=== PATIENT | female | born 1955 | race Caucasian/White ===

== ENCOUNTER → 2017-01-05 | Outpatient (CLI) | payer BC ==
[~2017-01-05] MED LIST: ALBUTEROL17 GM INH; AMLODIPINE BESYL5 MG PO; FLONASE 0.05% N16 G1; FLONASE 0.05% N16 G1 INH; LEVAQUIN250 MG PO; LISINOPRIL; LISINOPRIL-HCTZ1 T14 PO; MELOXICAM15 MG PO; PROMETHAZINE D118 ML PO; SINGULAIR PO; TAMIFLU75 M1 PO; TYLENOL325 MG/10. PO; ZOFRAN PO; [UNRECOGNIZED DRUG - OTHER] TOP
[2017-01-05 09:01] LABS: HEMATOCRIT 40.2 % (35.0-45.0); HEMOGLOBIN 13.5 gm/dL (12.0-16.0); MEAN CELL VOLUME 91.8 FL (83-96); MEAN CORPUSCULAR HEMOGLOBIN 30.9 PG (28-34); MEAN CORPUSCULAR HGB CONC 33.7 g/dL (30-36); RED BLOOD COUNT 4.38 X10e (3.90-5.30); RED CELL DISTRIBUTION WIDTH 13.6 % (11.0-15.5); WHITE BLOOD COUNT 8.5 X10e3 (4.0-10.5)
[2017-01-05 10:13] LABS: BILIRUBIN,TOTAL 0.8 mg/dL (0.2-2.0); BUN/CREATININE RATIO 22.85; CALCIUM SERUM 9.4 mg/dL (8.4-10.2); CREATININE SERUM 0.7 mg/dL (0.6-1.4); GLOM FILT RATE Estimated 94.8 mL/min (>60); POTASSIUM 4.1 mmol/L (3.5-5.1); PROTEIN TOTAL SERUM 7.1 g/dL (6.0-8.3)
== END | disposition home or self-care (01) ==
LOC: CLAB 08:38
PROVIDERS: Family Medicine
DX: E78.2 Mixed hyperlipidemia (principal); R73.9 Hyperglycemia, unspecified; I10 Essential (primary) hypertension
CPT/HCPCS: 36415; 80053; 80061; 83036; 85027

== ENCOUNTER → 2017-02-19 | Outpatient (CLI) | payer BC ==
--- NOTE | ~2017-02-19 | CT69 ---
[facility] A Service [facility] RADIOLOGY TEXT RESULTS PATIENT: DAMIEN HIGH LOCATION: [facility] : 59 UNIT #: [id number] AGE: [address]: Kerry Bertrand MD SEX: F ORDER DR: [id number] [facility]. [place], [place] [address] [id number] O MR#: [id number] Acc #: [id number] NAME: DAMIEN HIGH : 1955 SEX: F STUDY DATE/TIME: 02/19/2017 16:24 UNIT: [facility] ROOM: STUDY DESCRIPTION: CT Head W Contrast Attending Physician: Kerry Bertrand M.D. Referring Physician: Kerry Bertrand M.D. Ordering Physician: Kerry Bertrand M.D. Primary Care Physician: Kerry Bertrand M.D. MEDICAL IMAGING REPORT This report is preliminary unless electronic signature is present EXAM CT scan of the head with contrast. INDICATIONS Painful lump in the back of neck and base of the head for 1 month. Difficulty moving neck. COMPARISON 06/01/2006 TECHNIQUE Patient was given 100 mL of Isovue-370 and axial images were obtained through the brain and skull. This CT exam was performed with one or more of the following radiation dose reduction techniques: automatic exposure control, adjustment of mA and/or kV according to patient size, and iterative reconstruction. FINDINGS The ventricles and subarachnoid spaces are normal. There are no masses or extraaxial fluid collections. There is no abnormal enhancement. IMPRESSION 1. Normal CT scan of the brain with contrast. 2. A gel-cap was placed over the right posterior neck region and on this study only, underlying normal soft tissues visible. Dictated by... Elton Schulz M.D. THIS IS AN ELECTRONICALLY VERIFIED REPORT [facility] A Service [facility] RADIOLOGY TEXT RESULTS PATIENT: DAMIEN HIGH LOCATION: [facility] : 59 UNIT #: [id number] AGE: [address]: Kerry Bertrand MD SEX: F ORDER DR: Elton Schulz M.D. at 02/21/2017 9:34 PM BUDDY/jagdeep TD: 02/20/2017 21:56 JOB #: [id number] MEDICAL IMAGING REPORT Page 1 of 1 COPY
--- NOTE | ~2017-02-19 | CT114 ---
[facility] A Service of [facility] & [facility] RADIOLOGY TEXT RESULTS PATIENT: DAMIEN HIGH [facility] 59 UNIT #: [id number] AGE: [address]: Kerry Bertrand MD SEX: F ORDER DR: [id number] [facility] [address] [facility]. [place], [place] [address] [id number] O MR#: [id number] Acc #: [id number] NAME: DAMIEN HIGH : 1955 SEX: F STUDY DATE/TIME: 02/19/2017 16:24 UNIT: [facility] ROOM: STUDY DESCRIPTION: CT Soft Tissue Neck W Cont Attending Physician: Kerry Bertrand M.D. Referring Physician: Kerry Bertrand M.D. Ordering Physician: Kerry Bertrand M.D. Primary Care Physician: Kerry Bertrand M.D. MEDICAL IMAGING REPORT This report is preliminary unless electronic signature is present EXAM CT scan of the neck with contrast HISTORY Painful lump base of neck slightly at the right side for a month. Difficulty moving neck. TECHNIQUE Patient was given 100 mL of Isovue 370. Axial 3 mm images were obtained through the neck with sagittal and coronal reconstructions. This CT exam was performed with one or more of the following radiation dose reduction techniques: automatic control, adjustment of mA and/or kV according to patient size, and iterative reconstruction. FINDINGS The parotid glands and submandibular glands and thyroid gland are normal. Lung apices are clear. There were no soft tissue masses or adenopathy. A gel capsule was placed over the lower posterior neck on the right side indicating the site of the palpable lump. There is only normal skin and subcu fat visible. No lipoma is visible. The underlying muscles are normal. IMPRESSION 1. The CT scan of the neck with contrast appears normal. 2. I cannot identify any abnormalities associated with the painful lump indicated by the patient in the posterior lower right neck. Dictated by... Elton E. Zeus, M.D. THIS IS AN ELECTRONICALLY VERIFIED REPORT [facility] A Service of [facility] & [facility] RADIOLOGY TEXT RESULTS PATIENT: DAMIEN HIGH LOCATION: [facility] : 59 UNIT #: [id number] AGE: [address]: Kerry Bertrand MD SEX: F ORDER DR: Elton Schulz M.D. at 02/21/2017 9:34 PM BUDDY/rnr TD: 02/20/2017 22:02 JOB #: [id number] MEDICAL IMAGING REPORT Page 1 of 1 COPY
[2017-02-19 17:05] LABS: POC - CREATININE 0.76 mg/dL (0.44-1.03); POC - GFR >60.0 mL/min (>60)
== END | disposition home or self-care (01) ==
LOC: CCAT 15:24
PROVIDERS: Family Medicine
DX: R22.1 Localized swelling, mass and lump, neck (principal)
CPT/HCPCS: 70460; 70491; 82565; Q9967